=== PATIENT | male | born 1985 | race African-American/Black ===

== ENCOUNTER 2021-06-10 16:10 | Emergency (ER) | payer SELFPAY ==
[2021-06-10 16:09] VITALS: BP 117/60; PULSE 74; RESP 10; O2SAT 100
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
== END 2021-06-10 16:51 | disposition left against medical advice (07) ==
LOC: ANHED 16:29
PROVIDERS: Emergency Provider Emergency Medicine
DX: R41.82 Altered mental status, unspecified (principal)
CPT/HCPCS: 99199; 99281